=== PATIENT | female | born 1945 | race Caucasian/White ===

== ENCOUNTER 2018-02-10 07:29 | Day surgery (SDC) | payer MEDICARE ==
[2018-02-03 10:46] VITALS: BMI 35.8
[2018-02-10] MEDS ORDERED: CEFAZOLIN/Water 2 GM/20 ML SYRINGE ONE (08:16)
[2018-02-10] MEDS ORDERED: Meperidine HCl/PF 25 MG/ML VIAL ONE (09:52)
[2018-02-10] MEDS ORDERED: Bupivacaine PF 0.5% 30 ML VIAL ONE (09:54)
[2018-02-10] MEDS ORDERED: Bacitracin Zinc Ointment 30 gm TUBE ONE (09:54)
[2018-02-10] MEDS ORDERED: Sodium Chloride 0.9% 10 ML ONE (09:54)
[2018-02-10] MEDS ORDERED: PROPOFOL 200 MG/20 ML VIAL ONE (10:05)
[2018-02-10] MEDS ORDERED: Ondansetron HCl/PF 4 MG/2 ML Vial ONE (10:05)
[2018-02-10] MEDS ORDERED: Lidocaine 1% PF 5 ML VIAL ONE (10:05)
[2018-02-10] MEDS ORDERED: Betamet Acet/Betamet Na Ph 30 MG/5 ML VIAL ONE (11:05)
[2018-02-10] MEDS ORDERED: Ketorolac Tromethamine 30 MG/ML VIAL ONE (11:11)
--- NOTE | 2018-02-10 12:59 | OP ---
DATE OF PROCEDURE: 02/10/2018 SURGEON: Dr. Richi Farris PREOPERATIVE DIAGNOSIS: Right ring finger extensor tendon sheath ganglion finding 2.5 cm right exten sor tendon sheath ganglion ring finger. PROCEDURE PERFORMED: Excisional biopsy 2.5 cm extensor tendon ganglia, right ring finger. PATHOLOGY: The mass itself. ANESTHESIA: Injection of 15 mL 0.5% Marcaine without epinephrine metacarpophalangeal joint level blo ck. ESTIMATED BLOOD LOSS: Less than 5 mL. TOURNIQUET TIME: 4 minutes. INDICATIONS: The patient with a mass, no evidence of skin penetration. DESCRIPTION OF PROCEDURE: After successful general LMA technique, the limb was prepped and draped. Timeout was done appropriately. Limb was exsanguinated, tourniquet inflated to 250 mmHg pressure. W e had a zigzag incision outlined over the mass, we then injected with 10 mL 0.5% Marcaine, had metaca rpophalangeal joint block level and carried the incision through skin, subcutaneous tissue down to th e point where we could visualize the mass under the subcutaneous epidermis. It was a definite gangli on, was easily shelled out from the tendon sheath underneath and there was no evidence of a stalk goi ng towards any joint. We then preserved the skin, subcutaneous innovation, lifted the mass en bloc over the tendon and sent to pathology for specimen. We deflated the tourniquet, placed 3 mL of Celestone in the bed of the excisional biopsy, and closed the wound with hemostasis with interrupted 4-0 nylon. The patient left the operating room in a bulky dressing. No evidence of anesthetic or operative complication. Digits were pink.
== END 2018-02-10 12:56 | disposition home or self-care (01) ==
LOC: SDC 07:29
PROVIDERS: ATTEND Orthopaedic Surgery Hand Surgery
PROC: 0LB70ZZ Excision of Right Hand Tendon, Open Approach (ICD-10-PCS; principal; 2018-02-10)
DX: M67.441 Ganglion, right hand (principal); Z88.5 Allergy status to narcotic agent
CPT/HCPCS: 88304; 96372; 96374; A4216; J0702; J1885; J2001; J2175; J2405; J2704; J3490; S0020

== ENCOUNTER 2019-02-21 14:01 | Outpatient (CLI) | payer MEDICARE ==
--- NOTE | 2019-03-15 14:51 | MMO ---
Bilateral MAMMO Bilat Screen [facility]. CLINICAL HISTORY: Patient is 73 years old and is seen for screening. The patient has no family history of breast cancer. 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 The patient has a history of right Excisional Biopsy in 1993 - benign. VIEWS: The views performed were: bilateral craniocaudal with tomosynthesis; bilateral mediolateral oblique with tomosynthesis; and right craniocaudal. This study has been interpreted with the assistance of computer-aided detection. MAMMOGRAM FINDINGS: There are scattered fibroglandular densities. There are no suspicious masses, suspicious calcifications, or new areas of architectural distortion. IMPRESSION: THERE IS NO MAMMOGRAPHIC EVIDENCE OF MALIGNANCY. A ROUTINE FOLLOW-UP MAMMOGRAM IN 1 YEAR IS RECOMMENDED. THE RESULTS OF THIS EXAM WERE SENT TO THE PATIENT. ACR BI-RADS Category 1 - Negative MAMMOGRAPHY NOTE: 1. A negative mammogram report should not delay a biopsy if a dominant of clinically suspicious mass is present. 2. Approximately 10% to 15% of breast cancers are not detected by mammography. 3. Adenosis and dense breasts may obscure an underlying neoplasm. Reported by: SANDIP TRUJILLO MD Electonically Signed: [id number]
== END 2019-02-21 14:02 | disposition home or self-care (01) ==
LOC: BICMAMMO 14:01
PROVIDERS: ATTEND Psychologist Addiction (Substance Use Disorder)
DX: Z12.31 Encounter for screening mammogram for malignant neoplasm of breast (principal); Z91.89 Other specified personal risk factors, not elsewhere classified; Z85.72 Personal history of non-Hodgkin lymphomas
CPT/HCPCS: 77063; 77067

== ENCOUNTER 2020-10-06 13:35 | Outpatient (CLI) | payer MEDICARE ==
[2020-10-06 16:24] LABS: Anion Gap 14 mmol/L (10-20); BUN (Urea Nitrogen) 18 mg/dL (9.8-20.1); Calc. Creatinine Clearance 0 mL/min (70-130); Carbon Dioxide 25 mmol/L (23-31); Chloride 106 mmol/L (98-107); Glucose 75 mg/dL (83-110); Potassium 4.7 mmol/L (3.5-5.1); Sodium 140 mmol/L (136-145)
[2020-10-06 16:25] LABS: #Eosinphils 0.2 10x3/uL (0.0-0.5); #Monocytes 0.7 10x3/uL (0.0-1.1); %Basophils 0.8 % (0.0-2.0); %Eosinophils 3.7 % (0.0-6.0); %Monocytes 13.1 % (0.0-10.0); %Neutrophils 58.2 % (40.0-75.0); Mean Corpuscular HGB CONC 27.8 g/dL (32.0-36.0); Mean Corpuscular Hemoglobin 20.5 pg (27.0-33.0); Mean Corpuscular Volume 73.6 fl (81.6-98.3); Mean Platelet Volume 10.8 fl (7.4-10.4); Platelet Count 419 10x3/uL (150-450); RBC Distribution Width 22.4 % (11.5-14.5); White Blood Cell (WBC) Count 5.2 10x3/uL (3.5-10.5)
[2020-10-06 17:32] LABS: Anisocytosis MODERATE=16-30 cells (100X) (0-5/hpf); Hypochromia MODERATE=16-30 cells (100X) (0-5/hpf); Microcytosis SLIGHT = 6-15 cells (100X) (0-5/hpf); Poikilocytosis SLIGHT = 6-15 cells (100X) (0-5/hpf); Polychromasia SLIGHT = 2-3 cells (100X) (0-2/hpf)
[2020-10-06 17:33] LABS: Large Platelets SLIGHT; Ovalocytes SLIGHT = 2-5 cells (100X) (0-1/hpf); Platelet Morphology Comment Appears Adequate; Tear Drops SLIGHT = 2-5 cells (100X) (0-1/hpf)
[2020-10-07 01:31] LABS: SARS-CoV-2 PCR by NAA Not Detected (NotDetected)
== END 2020-10-06 13:36 | disposition home or self-care (01) ==
LOC: LABBT 13:35
PROVIDERS: ATTEND Surgery
DX: Z01.818 Encounter for other preprocedural examination (principal); K44.9 Diaphragmatic hernia without obstruction or gangrene; Z20.822 Contact with and (suspected) exposure to COVID-19
CPT/HCPCS: 80048; 85025; 93005; U0003; U0005; 87635; 93010

== ENCOUNTER 2020-10-09 07:15 | Observation (INO) | payer MEDICARE ==
[2020-10-09] MEDS ORDERED: Scopolamine 1.5 mg/72 hour Patch ONE (08:42)
[2020-10-09] MEDS ORDERED: Bupivacaine 0.25% HCL 30 ML VIAL ONE (08:48)
[2020-10-09] MEDS ORDERED: Lidocaine 1% w/Epinephrine 1:100K 20 ML VIAL ONE (08:48)
[2020-10-09] MEDS ORDERED: Fentanyl 100 MCG/2 ML VIAL ONE ×2 (08:56)
[2020-10-09] MEDS ORDERED: Famotidine/PF 20 mg/2ml Vial ONE (08:57)
[2020-10-09] MEDS ORDERED: Phenylephrine 10 MG/ML VIAL ONE (08:57)
[2020-10-09] MEDS ORDERED: Meperidine HCl/PF 25 MG/ML VIAL SLOW IVP PRN (09:57)
[2020-10-09] MEDS ORDERED: PACU-Morphine 4MG/ML VIAL SLOW IVP PRN (09:57)
[2020-10-09] MEDS ORDERED: Promethazine HCl 25 MG/ML VIAL SLOW IVP PRN (09:57)
[2020-10-09] MEDS ORDERED: Promethazine HCl 25 MG/ML VIAL IM PRN ×2 (09:57→15:33)
[2020-10-09] MEDS ORDERED: Glycopyrrolate 0.2 MG/ML 5 ML SYRINGE ONE (11:11)
[2020-10-09] MEDS ORDERED: Rocuronium Bromide 10 MG/ML (10ML VIAL) ONE (11:11)
[2020-10-09] MEDS ORDERED: Dexamethasone 20 MG/5 ML VIAL ONE (11:11)
[2020-10-09] MEDS ORDERED: Lidocaine 1% PF 5 ML VIAL ONE (11:11)
[2020-10-09] MEDS ORDERED: Esmolol 100 MG/10 ML VIAL ONE (11:11)
[2020-10-09] MEDS ORDERED: PROPOFOL 200 MG/20 ML VIAL ONE (11:11)
[2020-10-09] MEDS ORDERED: PHENYLEPHRINE-NS 100 MCG/ML 10 ML SYRINGE ONE (11:11)
[2020-10-09] MEDS ORDERED: Ondansetron PF 4 MG/2 ML Vial ONE (11:11)
[2020-10-09] MEDS ORDERED: Dextrose 50% Abboject 50 ML SYRINGE SLOW IVP PRN (15:33)
[2020-10-09] MEDS ORDERED: Morphine 4 MG/ML VIAL SLOW IVP PRN ×2 (15:33→15:38)
[2020-10-09] MEDS ORDERED: traMADol HCl 50 MG TAB PO PRN ×2 (15:33)
[2020-10-09] MEDS ORDERED: Dextrose 5% in Water 1,000 ML IV PRN (15:33)
[2020-10-09] MEDS ORDERED: Ondansetron PF 4 MG/2 ML Vial IVP PRN (15:33)
[2020-10-09] MEDS ORDERED: hydrALAZINE 20 MG/ML VIAL SLOW IVP PRN (15:33)
[2020-10-09] MEDS: D5 1/2 NS w/20 mEq KCL 1,000 ML IV SCH (19:38)
[2020-10-10 03:42] VITALS: BMI 37.8
[2020-10-10] MEDS: D5 1/2 NS w/20 mEq KCL 1,000 ML IV SCH (06:30)
[2020-10-10 08:02] VITALS: TEMP 97.7
[2020-10-10] MEDS ORDERED: Pantoprazole 40 MG VIAL IVP SCH (09:00)
[2020-10-10 11:39] VITALS: BP 110/65
== END 2020-10-10 14:14 | disposition home or self-care (01) ==
LOC: SDC 07:15 → SURG A 10:55 → EDSTATUS 13:30
PROVIDERS: ADMIT Surgery; ATTEND Surgery
PROC: 0DV44ZZ Restriction of Esophagogastric Junction, Percutaneous Endoscopic Approach (ICD-10-PCS; principal; 2020-10-09)
DX: K44.9 Diaphragmatic hernia without obstruction or gangrene (principal); Z79.899 Other long term (current) drug therapy; Z88.5 Allergy status to narcotic agent
CPT/HCPCS: 43280; 51701 ×2; 96374; G0378 ×2; 51798; C9113; J0690; J1100; J2370; J2405; J2704; J3010; S0020; S0028